=== PATIENT | female | born 1980 | race Caucasian/White ===

== ENCOUNTER 2017-05-28 09:01 | Emergency (ER) | payer MEDICAID ==
[~2017-05-28] VITALS: Ht 162.6 cm; Wt 80.0 kg
[2017-05-28] MEDS ORDERED: ALBU6.7H INH (09:05)
[2017-05-28] MEDS ORDERED: METHYLPREDNISOLONE SOD SUCC 125 MG/2 ML VIAL IV STA (09:28)
[2017-05-28] MEDS ORDERED: KETOROLAC 30MG/ML VIAL IV STA (09:28)
[2017-05-28] MEDS ORDERED: IPRATROPIUM BROMIDE (0.02%) 0.5MG/2.5ML NEB HHN STA (09:28)
[2017-05-28] MEDS ORDERED: ALBUTEROL (0.083%) 2.5MG/3ML NEB HHN STA (09:28)
[2017-05-28] MEDS ORDERED: DIPHENHYDRAMINE 50MG/ML VIAL IV ONE (09:30)
[2017-05-28] MEDS ORDERED: LORAZEPAM 2MG/ML CPJ IV ONE (09:30)
[2017-05-28 10:11] VITALS: BP 144/69
[2017-05-28 10:26] LABS: BASOPHILS % 0.2 % (0.0-2.0); EOSINOPHILS % 3.3 % (0.0-5.0); HEMATOCRIT. 41.7 % (36.0-48.0); HEMOGLOBIN. 13.9 g/dL (12.0-16.0); LYMPHOCYTES % 21.9 % (20.0-50.0); MEAN CORPUSCULAR VOLUME 83.7 fL (81.0-99.0); MEAN PLATELET VOLUME 8.9 fl (7.4-10.4); MONOCYTES % 8.9 % (2.0-8.0); NEUTROPHILS % 65.7 % (40.0-76.0); PLATELET 221 x1000/uL (130-400); RED BLOOD CELL COUNT 4.98 mill/uL (4.2-5.4); RED CELL DISTRIBUTION WIDTH 14.1 % (11.6-14.6)
[2017-05-28 10:52] LABS: CARBON DIOXIDE 24 mEq/L (21-32); CHLORIDE 109 mEq/L (98-107); TROPONIN I < 0.02 ng/mL (0.00-0.04)
== END 2017-05-28 12:12 | disposition home or self-care (01) ==
LOC: ER 09:55
DX: J45.901 Unspecified asthma with (acute) exacerbation (principal); Z88.5 Allergy status to narcotic agent
CPT/HCPCS: 36415; 71045; 80053; 81025; 83880; 84484; 85025; 93005; 96374; 96375; 99285; J1200; J1885; J2060; J2930

== ENCOUNTER 2017-06-01 15:37 | Emergency (ER) | payer MEDICAID ==
[~2017-06-01] VITALS: Ht 175.3 cm; Wt 139.0 kg
[~2017-06-01 15:37] MED LIST: ALBU6.7H INH
[2017-06-01 15:50] VITALS: BP 152/80
== END 2017-06-01 18:45 | disposition left against medical advice (07) ==
LOC: ER 16:37
DX: R05 Cough (principal); H92.03 Otalgia, bilateral; R50.9 Fever, unspecified; Z53.21 Procedure and treatment not carried out due to patient leaving prior to being seen by health care provider

== ENCOUNTER 2017-06-03 02:02 | Emergency (ER) | payer MEDICAID ==
[~2017-06-03] VITALS: Ht 172.7 cm; Wt 137.0 kg
[2017-06-03 02:23] VITALS: BP 158/92
[2017-06-03] MEDS ORDERED: ACETAMINOPHEN 500MG TABLET PO ONE (03:00)
== END 2017-06-03 04:32 | disposition home or self-care (01) ==
LOC: ER 02:02
DX: J06.9 Acute upper respiratory infection, unspecified (principal); J45.909 Unspecified asthma, uncomplicated; Z90.49 Acquired absence of other specified parts of digestive tract; E03.9 Hypothyroidism, unspecified; Z88.5 Allergy status to narcotic agent; Z98.890 Other specified postprocedural states
CPT/HCPCS: 93005; 99283